=== PATIENT | male | born 1940 | race Caucasian/White ===

== ENCOUNTER 2017-10-24 13:44 | Inpatient (IN) | payer MEDICARE, OTHER ==
[~2017-10-24] VITALS: Ht 175.3 cm; Wt 78.0 kg
[2017-10-24] MEDS ORDERED: CARDURA4 MG ORAL (13:51)
[2017-10-24] MEDS ORDERED: HYDROCHLOROTHIA25 MG ORAL (13:51)
[2017-10-24] MEDS ORDERED: LOSARTAN POTAS100 MG ORAL (13:51)
[2017-10-24] MEDS ORDERED: ZANTAC150 MG ORAL (13:51)
[2017-10-24] MEDS ORDERED: FUROSEMIDE20 M1 ORAL (13:51)
[2017-10-24] MEDS ORDERED: MULTIVITAMINS1 EAC2 ORAL (13:51)
[2017-10-24] MEDS ORDERED: COLACE100 MG ORAL (13:51)
[2017-10-24] MEDS ORDERED: METOPROLOL TART25 MG ORAL (13:51)
[2017-10-24] MEDS ORDERED: ASPIRIN81 MG ORAL (13:51)
[2017-10-24] MEDS ORDERED: NORVASC10 MG ORAL (13:51)
[2017-10-24] MEDS ORDERED: PRAVACHOL40 MG ORAL (13:51)
[2017-10-24] MEDS ORDERED: UNOBMED (13:54)
[2017-10-24] MEDS ORDERED: CELEXA10 MG ORAL (13:54)
[2017-10-24] MEDS ORDERED: POTASSIUM CHLO20 ME1 ORAL (13:54)
[2017-10-24] MEDS ORDERED: VIAGRA100 MG PO (13:54)
[2017-10-24] MEDS ORDERED: DETROL LA4 MG ORAL (13:54)
[2017-10-24] MEDS ORDERED: XARELTO15 MG ORAL (13:54)
[2017-10-24] MEDS ORDERED: ATIVAN0.5 MG ORAL (13:54)
[2017-10-24 14:00] VITALS: BP 116/66
[2017-10-24 14:34] LABS: BASOPHILS % (AUTO) 0.5 % (0.0-2.0); EOSINOPHILS % (AUTO) 0.4 % (0.0-3.0); HEMATOCRIT 37.1 % (42.0-52.0); HEMOGLOBIN 12.7 G/DL (14.2-18.0); MEAN CORPUSCULAR VOLUME 94 FL (80-99); MONOCYTES % (AUTO) 7.4 % (1.0-10.0); NEUTROPHILS % (AUTO) 82.7 % (45.0-75.0); PLATELET COUNT 172 K/UL (150-450); RED BLOOD COUNT 3.94 M/UL (4.70-6.10); WHITE BLOOD COUNT 12.4 K/UL (4.8-10.8)
[2017-10-24 14:39] LABS: INR 1.1 (0.9-1.1)
[2017-10-24 14:41] LABS: ANION GAP 7 mmol/L (5-15); BLOOD UREA NITROGEN 28 mg/dL (7-18); CALCIUM 9.6 MG/DL (8.5-10.1); CARBON DIOXIDE 29 MMOL/L (21-32); CHLORIDE 102 MMOL/L (98-107); CREATININE 1.8 MG/DL (0.55-1.30); POTASSIUM 3.5 MMOL/L (3.5-5.1); SODIUM 138 MMOL/L (136-145)
[2017-10-24 14:51] LABS: ALANINE AMINOTRANSFERASE 17 U/L (12-78); ALBUMIN 3.1 G/DL (3.4-5.0); ALBUMIN/GLOBULIN RATIO 0.9 (1.0-2.7); ALKALINE PHOSPHATASE 33 U/L (46-116); ASPARTATE AMINO TRANSFERASE 16 U/L (15-37); BILIRUBIN,TOTAL 0.8 MG/DL (0.2-1.0); CREATINE KINASE 142 U/L (26-308)
--- NOTE | 2017-10-24 15:26 | Emergency Room Report ---
History of Present Illness General Chief Complaint: Lower Back Pain or Injury Source: Patient, Family Member, EMS Present Illness HPI Patient is brought in for falling episodes. His in ER and he, unable to discuss what happened. According to EMS he had back pain that's when they were called. When they arrived he denied falling and having back pain but complained about abdominal pain. To me he does complain about back pain. 0/10 to RN. The patient is on Xarelto with h/o A fib No chest pain, palpitations, NVD, dysuria. + bruising. Variable historian with h/o dementia. Allergies: Coded Allergies: No Known Allergies (Unverified , 11/09/14) Patient History Limited by: medical condition Past Medical History: see triage record Social History Narrative - assisted living Reviewed Nursing Documentation: PMH: Agreed, PSxH: Agreed Nursing Documentation-PMH Hx Cardiac Problems: Yes - CAD Hx Hypertension: Yes Hx Cerebrovascular Accident: Yes Review of Systems All Other Systems: limited Physical Exam Vital Signs Date Time Temp Pulse Resp B/P (MAP) Pulse Ox O2 Delivery O2 Flow Rate FiO2 10/24/17 13:36 97.9 72 18 144/82 95 Room Air Sp02 EP Interpretation: reviewed, normal General Appearance: well appearing, no apparent distress, non-toxic, other - GCS = 14 - sl confused Head: normocephalic Eyes: bilateral eye normal inspection, bilateral eye PERRL ENT: dry mucus membranes Neck: supple, no bony tend Respiratory: lungs clear, normal breath sounds Cardiovascular #1: irregularly irregular Cardiovascular #2: 2+ radial (R) Gastrointestinal: normal inspection, normal bowel sounds, non tender, no mass, non-distended Musculoskeletal: normal range of motion, no calf tenderness, pelvis stable, tender - lumbar area, no point tenderness or step off Neurologic: alert, motor strength/tone normal, DTRs symmetric, sensory intact, speech normal, oriented - X2 Psychiatric: anxious Skin: warm/dry, other - multiple ecchymoses arms and LE Medical Decision Making Diagnostic Impression: Primary Impression: Falling episodes Additional Impressions: Weakness Anticoagulated Dementia Qualified Codes: F03.90 - Unspecified dementia without behavioral disturbance Renal insufficiency Dehydration ER Course Patient with possible fall with back pain. On Xarelto. Ddx: brain bleed, contusions, fracture. Evaluation with CT head and back, EKG, CXR labs. Difficulty with variable history. Patient denies pain at this time. Comprehensive evaluation due to complexity and co-morbidity. EKG with BBB and a fib. CXR no infiltrates. CT head with frontal hygromas. CT back with spondylolisthesis. Labs with renal insufficiency. Patient unable to ambulate - unsteady gait and generalized weakness. Observed by Dr. Lovell who wants the patient admitted. C/O some back pain and anxiety. Slight repetitive questioning. Ativan and norco ordered. Admit med, Dr. Lovell. Laboratory Tests Test 10/24/17 14:00 White Blood Count 12.4 K/UL (4.8-10.8) H Red Blood Count 3.94 M/UL (4.70-6.10) L Hemoglobin 12.7 G/DL (14.2-18.0) L Hematocrit 37.1 % (42.0-52.0) L Mean Corpuscular Volume 94 FL (80-99) Mean Corpuscular Hemoglobin 32.3 PG (27.0-31.0) H Mean Corpuscular Hemoglobin Concent 34.4 G/DL (32.0-36.0) Red Cell Distribution Width 12.0 % (11.6-14.8) Platelet Count 172 K/UL (150-450) Mean Platelet Volume 6.1 FL (6.5-10.1) L Neutrophils (%) (Auto) 82.7 % (45.0-75.0) H Lymphocytes (%) (Auto) 9.0 % (20.0-45.0) L Monocytes (%) (Auto) 7.4 % (1.0-10.0) Eosinophils (%) (Auto) 0.4 % (0.0-3.0) Basophils (%) (Auto) 0.5 % (0.0-2.0) Prothrombin Time 11.9 SEC (9.30-11.50) H Prothrombin Time INR 1.1 (0.9-1.1) PTT 27 SEC (23-33) Sodium Level 138 MMOL/L (136-145) Potassium Level 3.5 MMOL/L (3.5-5.1) Chloride Level 102 MMOL/L (98-107) Carbon Dioxide Level 29 MMOL/L (21-32) Anion Gap 7 mmol/L (5-15) Blood Urea Nitrogen 28 mg/dL (7-18) H Creatinine 1.8 MG/DL (0.55-1.30) H Estimate Glomerular Filtration Rate mL/min (>60) Glucose Level 106 MG/DL (74-106) Calcium Level 9.6 MG/DL (8.5-10.1) Total Bilirubin 0.8 MG/DL (0.2-1.0) Aspartate Amino Transferase (AST) 16 U/L (15-37) Alanine Aminotransferase (ALT) 17 U/L (12-78) Alkaline Phosphatase 33 U/L (46-116) L Total Creatine Kinase 142 U/L (26-308) Troponin I 0.027 ng/mL (0.000-0.056) Pro-B-Type Natriuretic Peptide 4133 pg/mL (0-125) H Total Protein 6.5 G/DL (6.4-8.2) Albumin 3.1 G/DL (3.4-5.0) L Globulin 3.4 g/dL Albumin/Globulin Ratio 0.9 (1.0-2.7) L Lipase 89 U/L (73-393) EKG Diagnostic Results Rate: other - a fib Rhythm: other - a fib ST Segments: no acute changes Rhythm Strip Diag. Results EP Interpretation: yes Rhythm: no PVC's, no ectopy, other - a fib Chest X-Ray Diagnostic Results Chest X-Ray Diagnostic Results : Chest X-Ray Ordered: Yes # of Views/Limited/Complete: 1 View Indication: Other EP Interpretation: Yes Interpretation: no consolidation, no effusion, no pneumothorax Impression: Other Electronically Signed by: Electronically signed by Suresh Granados MD CT/MRI/US Diagnostic Results CT/MRI/US Diagnostic Results #1: Imaging Test Ordered: head Impression atrophy, hygroma CT/MRI/US Diagnostic Results #2: Imaging Test Ordered: L spine Impression spondylolisthesis - DJD Last Vital Signs Date Time Temp Pulse Resp B/P (MAP) Pulse Ox O2 Delivery O2 Flow Rate FiO2 10/24/17 17:11 97.9 73 18 126/79 99 Room Air Status: improved Disposition: ADMITTED INPATIENT Condition: Serious Referrals: NOT CHOSEN COLEEN/,REFERRING (PCP) Suresh Granados M.D. Oct 24, 2017 15:26
[2017-10-24 16:00] VITALS: BP 126/79
[2017-10-24] MEDS ORDERED: Miralax 17gm pkt ORAL PRN (16:00)
[2017-10-24] MEDS ORDERED: Acetaminophen 500mg (ES) tab ORAL PRN (16:00)
[2017-10-24] MEDS ORDERED: Norco 5mg/325mg tab ORAL ONE (16:00)
[2017-10-24] MEDS ORDERED: LORazepam 0.5mg tab ORAL ONE (16:00)
[2017-10-24] MEDS: Docusate 100mg cap ORAL SCH (18:30)
[2017-10-24] MEDS ORDERED: LORAZEPAM0.5 MG ORAL (18:32)
[2017-10-24] MEDS ORDERED: TYLENOL EXTRA500 MG ORAL ×2 (18:40→18:44)
[2017-10-24 20:00] VITALS: BP 130/80
[2017-10-24] MEDS: traMADol 50mg tab ORAL SCH ×2 (22:07→22:11)
[2017-10-24] MEDS: Doxazosin 4mg tab ORAL SCH (22:29)
[2017-10-24] MEDS: Exelon 1.5mg cap ORAL SCH (22:30)
[2017-10-24] MEDS: Citalopram Hydrobromide 10mg Tab ORAL SCH (22:46)
[2017-10-24 23:55] LABS: APPEARANCE,URINE CLEAR; BILIRUBIN, URINE NEGATIVE (NEGATIVE); GLUCOSE, URINE (UA) NEGATIVE (NEGATIVE); KETONES,URINE NEGATIVE (NEGATIVE); LEUKOCYTE ESTERASE ,URINE NEGATIVE (NEGATIVE); NITRITE,URINE NEGATIVE (NEGATIVE); PH,URINE 6 (4.5-8.0); UROBILINOGEN,URINE NORMAL MG/DL (0.0-1.0)
[2017-10-25] VITALS: BP 150/80
[2017-10-25] LABS: COLOR,URINE YELLOW; PROTEIN,URINE NEGATIVE (NEGATIVE)
[2017-10-25] MEDS ORDERED: EXELON PO (03:41)
[2017-10-25] MEDS ORDERED: ZANTAC150 MG ORAL (03:41)
[2017-10-25 04:00] VITALS: BP 145/75
--- NOTE | 2017-10-25 04:15 | History and Physical Report ---
DATE OF ADMISSION: 10/24/2017 CHIEF COMPLAINT AND REASON FOR HOSPITALIZATION: The patient with back pain and difficulty walking. HISTORY OF PRESENT ILLNESS: The patient is a 76-year-old male with a history of Alzheimer's, hypertension, atrial fibrillation, chronic kidney disease, anxiety disorder, and urinary incontinence. He apparently had an accidental slip and fall in the shower today and complained of back pain. The staff at [facility] noticed that he was having trouble walking, was concerned about a stroke or a new problem and sent him to the emergency room. SURGERIES: Left leg vascular surgery for arterial insufficiency. ALLERGIES: None known. MEDICATIONS: Include amlodipine, aspirin, citalopram, DSS, doxazosin, furosemide, hydrochlorothiazide, lorazepam, metoprolol, multivitamins, Exelon, Detrol, and I believe he is on Xarelto as well. HABITS: He is a former smoker and quit. Alcohol in the past, none recently. SOCIAL HISTORY: He lives in the assisted living facility with his , who also has Alzheimer's. SYSTEM REVIEW: HEAD, EYES, EARS, NOSE, AND THROAT: Vision is good. He has a mild hearing impairment. ENDOCRINE: No known thyroid disease or diabetes. PULMONARY: No asthma or TB. CARDIAC: Atrial fibrillation and diastolic congestive heart failure. He did have some shortness of breath. History of hypertension. GASTROINTESTINAL: No ulcers or GI bleeding. GENITOURINARY: He has had some urinary incontinence and BPH, improved with medications recently. NEUROLOGIC: History of Alzheimer's and no history of focal stroke. HEMATOLOGIC/ONCOLOGIC: No history of malignancy. He has been on anticoagulants for several years for atrial fibrillation and arterial insufficiency of the leg. PHYSICAL EXAMINATION: GENERAL: The patient is alert, seen in the emergency room. VITAL SIGNS: Temperature 97.9, pulse 73, respirations 18, and blood pressure 126/79. HEAD, EYES, EARS, NOSE, AND THROAT: Sclerae are nonicteric. Ocular motions intact in all directions. Oral mucosa moist. NECK: No lymphadenopathy. LUNGS: Clear. HEART: Rhythm is atrial fibrillation. I hear no murmur. ABDOMEN: Soft. No organomegaly or masses. EXTREMITIES: No edema, cyanosis, or clubbing. There is no swelling of joints. BACK: He has some mild tenderness in the low back. NEUROLOGIC: He is alert and responsive. Speech is clear. Ocular motion is intact in all directions. Smile symmetric. Tongue is midline. Strength appears to be normal in all extremities. Gait is unsteady. He is moderate to max assist to stand. When he takes small steps, he tends to fall backwards. IMPRESSION: 1. Status post ground level fall in the shower with back pain. 2. Gait disorder. 3. Alzheimer's. 4. Atrial fibrillation. 5. Hypertension. 6. Chronic kidney disease, stage 3. 7. History of long-term use of anticoagulants. PLAN: He needs to have imaging done to evaluate for any occult stroke or severe back injury, get him in physical therapy and monitoring of his gait to prevent any further falls and self-injury. Due to his chronic medical problems, we will watch closely due to his Alzheimer's, use of diuretics and chronic kidney disease. Keon Lovell M.D. DR: FISH JOB#: [id number] CC:
[2017-10-25] MEDS: traMADol 50mg tab ORAL SCH ×3 (06:22→21:30)
[2017-10-25 08:46] VITALS: BP 90/52
[2017-10-25] MEDS: Multivitamin w/Minerals tab ORAL SCH (08:51)
[2017-10-25] MEDS: Docusate 100mg cap ORAL SCH ×2 (08:52→17:24)
[2017-10-25] MEDS: Losartan 50mg tab ORAL SCH (08:53)
[2017-10-25] MEDS: Exelon 1.5mg cap ORAL SCH ×2 (08:53→17:25)
[2017-10-25] MEDS: Metoprolol 25mg tab ORAL SCH (08:53)
[2017-10-25] MEDS: Doxazosin 4mg tab ORAL SCH ×3 (08:53→18:00)
[2017-10-25] MEDS ORDERED: Aspirin Baby 81mg ORAL ONE (09:00)
--- NOTE | 2017-10-25 10:26 | Diagnostic Imaging Report ---
Indications: Trauma, status post fall Technique: Spiral acquisitions obtained through the brain. Angled axial and coronal 5 x 5 mm slices were reconstructed. Total dose length product 1488 mGycm. CTDI vol(s) 70 mGy. Dose reduction achieved using automated exposure control Comparison: None. Findings: There is age-related enlargement of the ventricles and extra-axial CSF spaces, most pronounced in the bilateral frontal regions. There is some focal encephalomalacia of the posterior left frontal lobe there is periventricular deep white matter ischemic change. Old lacunar infarcts are seen in the basal ganglia bilaterally, more numerous on the left than on the right. No acute intracranial hemorrhage or edema. No mass effect nor midline shift. Otherwise normal delgado-white differentiation. Intact calvarium. Visualized orbits and sinuses are unremarkable Impression: Chronic and age-related changes. Multiple old infarcts, as described. Negative for acute intracranial bleed or mass effect This agrees with the preliminary interpretation provided overnight by [facility]. The CT scanner at [facility] is accredited by the [employer] and the scans are performed using protocols designed to limit radiation exposure to as low as reasonably achievable to attain images of sufficient resolution adequate for diagnostic evaluation.
--- NOTE | 2017-10-25 10:38 | Diagnostic Imaging Report ---
Indications: Trauma, pain, status post fall, back pain Technique: Spiral acquisitions obtained through the lumbar spine. Multiplanar reconstructions were generated. No IV contrast utilized. Total dose length product 827.95 mGycm. CTDIvol(s) 25.67 mGy. Dose reduction achieved using automated exposure control Comparison: none Findings: There is slight anterior offset of L4 on L5, presumably related to facet degeneration as there is no pars defect evident. There is minimal dextroscoliotic deformity. The remaining bony alignment is normal. The vertebral body heights are preserved. There is very mild degenerative disc narrowing at L5-S1, mild degenerative disc narrowing at L1-2. The remaining disc spaces are preserved. There are extensive degenerative proliferative changes. No acute fractures. There is minimal circumferential annular bulge at L3-4. This, in examination with facet arthrosis, results in minimal narrowing the spinal canal. There is circumferential annular bulge at L4-5. This, as well as the alignment abnormality and facet arthrosis results in [id number] narrowing of the spinal canal at this level. At L5-S1, there is mild circumferential annular bulge which does not significantly narrow the spinal canal. Facet arthrosis results in moderate narrowing of the left and mild narrowing of the right neural foramina There is a pelvic stimulator power pack on the right with wire emanating into the right S2 foramen. There is a small fusiform infrarenal abdominal aortic aneurysm which measures up to 3.2 cm transverse dimension. No evidence of leakage or rupture. Impression: No acute bony trauma Degenerative changes, as detailed above 3.2 cm infrarenal fusiform abdominal aortic aneurysm. No evidence of leakage or rupture Incidental finding of sacral stimulator Findings discussed by phone with Dr. Rose at the time of interpretation The CT scanner at [facility] is accredited by the [employer] and the scans are performed using protocols designed to limit radiation exposure to as low as reasonably achievable to attain images of sufficient resolution adequate for diagnostic evaluation.
--- NOTE | 2017-10-25 11:14 | Diagnostic Imaging Report ---
Indication: Shortness of breath Technique: One view of the chest Comparison: none Findings: There is some pleural fluid on the left. Lungs and pleural spaces are otherwise clear. The heart is enlarged. The aorta is tortuous and calcified Impression: Left pleural effusion Cardiomegaly
[2017-10-25] MEDS: LORazepam 0.5mg tab ORAL PRN (12:32)
[2017-10-25] MEDS: Tolterodine 2mg tab ORAL SCH (13:49)
[2017-10-25 16:00] VITALS: BP 141/71
--- NOTE | 2017-10-25 17:45 | General Progress Note ---
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 SNOMED: 504257281, 481918180 (3) Falling episodes ICD Codes: R29.6 - Repeated falls SNOMED: 214571941 (4) Weakness ICD Codes: R53.1 - Weakness SNOMED: 44624983 (5) Unsteady gait ICD Codes: R26.81 - Unsteadiness on feet SNOMED: 24551955, 467467329 (6) Dementia ICD Codes: F03.90 - Unspecified dementia without behavioral disturbance SNOMED: 51868366 Qualifiers: Qualified Codes: F03.90 - Unspecified dementia without behavioral disturbance (7) Dehydration ICD Codes: E86.0 - Dehydration SNOMED: 07291013, 548247905 Assessment/Plan PT mobilize watch bp hydrate Subjective Constitutional: Reports: weakness HEENT: Reports: no symptoms Cardiovascular: Reports: no symptoms Respiratory: Reports: no symptoms Gastrointestinal/Abdominal: Reports: no symptoms Genitourinary: Reports: incontinence Neurologic/Psychiatric: Reports: weakness Endocrine: Reports: no symptoms Hematologic/Lymphatic: Reports: no symptoms Allergies: Coded Allergies: No Known Allergies (Unverified , 11/09/14) Objective Last 24 Hour Vital Signs Date Time Temp Pulse Resp B/P (MAP) Pulse Ox O2 Delivery O2 Flow Rate FiO2 10/25/17 17:12 Room Air 10/25/17 16:00 97.7 78 20 141/71 97 10/25/17 14:49 97.7 10/25/17 08:54 67 90/52 10/25/17 08:53 67 90/52 10/25/17 08:53 90/52 10/25/17 08:46 97.7 67 18 90/52 98 Room Air 10/25/17 08:12 Room Air 10/25/17 04:00 97.7 67 20 145/75 98 10/25/17 00:00 97.3 84 20 150/80 97 10/24/17 20:00 Room Air 10/24/17 20:00 97.9 61 22 130/80 97 Intake and Output 10/24/17 10/25/17 19:00 07:00 Intake Total 0 ml 240 ml Output Total 300 ml Balance 0 ml -60 ml Intake Oral 0 ml 240 ml Output Urine Total 300 ml # Voids 1 Laboratory Tests 10/24/17 23:10: Urine Color Yellow, Urine Appearance Clear, Urine pH 6, Urine Specific [place] 1.010, Urine Protein Negative, Urine Glucose (UA) Negative, Urine Ketones Negative, Urine Occult Blood Negative, Urine Nitrite Negative, Urine Bilirubin Negative, Urine Urobilinogen Normal, Urine Leukocyte Esterase Negative, Urine Opiates Screen Negative, Urine Barbiturates Screen Negative, Phencyclidine (PCP ) Screen Negative, Urine Amphetamines Screen Negative, Urine Benzodiazepines Screen Negative, Urine Cocaine Screen Negative, Urine Marijuana (THC) Screen Negative Height (Feet): 5 Height (Inches): 9.00 Weight (Pounds): 172 General Appearance: no apparent distress, alert, confused EENT: normal ENT inspection Neck: normal alignment Cardiovascular: regularly irregular Respiratory/Chest: lungs clear Abdomen: no organomegaly Edema: no edema noted Arm (L), no edema noted Arm (R), no edema noted Leg (L), no edema noted Leg (R), no edema noted Pedal (L), no edema noted Pedal (R), no edema noted Generalized Neurologic: disoriented, other - unstable gait SURYA QUINTEROS Oct 25, 2017 17:45
[2017-10-25 20:00] VITALS: BP 143/77
[2017-10-25] MEDS: Citalopram Hydrobromide 10mg Tab ORAL SCH (21:29)
[2017-10-26] VITALS: BP 146/85
[2017-10-26 04:48] VITALS: BP 148/94
[2017-10-26] MEDS: LORazepam 0.5mg tab ORAL PRN ×2 (05:08→15:36)
[2017-10-26] MEDS: traMADol 50mg tab ORAL SCH ×3 (05:22→22:21)
[2017-10-26 08:00] VITALS: BP 130/83
[2017-10-26 08:49] LABS: HEMATOCRIT 35.1 % (42.0-52.0); MEAN CORPUSCULAR VOLUME 96 FL (80-99); PLATELET COUNT 164 K/UL (150-450); RED BLOOD COUNT 3.66 M/UL (4.70-6.10); RED CELL DISTRIBUTION WIDTH 12.2 % (11.6-14.8); WHITE BLOOD COUNT 10.4 K/UL (4.8-10.8)
[2017-10-26] MEDS: Multivitamin w/Minerals tab ORAL SCH (10:13)
[2017-10-26] MEDS: Metoprolol 25mg tab ORAL SCH (10:13)
[2017-10-26] MEDS: Exelon 1.5mg cap ORAL SCH ×2 (10:13→17:46)
[2017-10-26] MEDS: Losartan 50mg tab ORAL SCH (10:14)
[2017-10-26] MEDS: Docusate 100mg cap ORAL SCH ×2 (10:14→17:41)
[2017-10-26] MEDS: Doxazosin 4mg tab ORAL SCH ×2 (10:14→17:41)
[2017-10-26 12:00] VITALS: BP 136/86
--- NOTE | 2017-10-26 13:29 | Neurology Progress Note ---
Interim History Interim History ROS Limited/Unobtainable: Yes Complaints: dizzy/mikd GRANT Events: gait ataxia x last few days Objective Physical Exam Last Vital Signs Date Time Temp Pulse Resp B/P (MAP) Pulse Ox O2 Delivery O2 Flow Rate FiO2 10/26/17 10:14 148/94 10/26/17 10:13 80 10/26/17 06:41 97.3 10/26/17 04:48 19 98 10/25/17 17:12 Room Air Laboratory Tests Test 10/26/17 08:15 White Blood Count 10.4 K/UL (4.8-10.8) Red Blood Count 3.66 M/UL (4.70-6.10) L Hemoglobin 12.0 G/DL (14.2-18.0) L Hematocrit 35.1 % (42.0-52.0) L Mean Corpuscular Volume 96 FL (80-99) Mean Corpuscular Hemoglobin 32.9 PG (27.0-31.0) H Mean Corpuscular Hemoglobin Concent 34.4 G/DL (32.0-36.0) Red Cell Distribution Width 12.2 % (11.6-14.8) Platelet Count 164 K/UL (150-450) Mean Platelet Volume 6.6 FL (6.5-10.1) Neutrophils (%) (Auto) % (45.0-75.0) Lymphocytes (%) (Auto) % (20.0-45.0) Monocytes (%) (Auto) % (1.0-10.0) Eosinophils (%) (Auto) % (0.0-3.0) Basophils (%) (Auto) % (0.0-2.0) Differential Total Cells Counted 100 Neutrophils % (Manual) 80 % (45-75) H Lymphocytes % (Manual) 11 % (20-45) L Monocytes % (Manual) 7 % (1-10) Eosinophils % (Manual) 2 % (0-3) Basophils % (Manual) 0 % (0-2) Band Neutrophils 0 % (0-8) Platelet Estimate Adequate Platelet Morphology Normal Red Blood Cell Morphology Normal General: well developed, well nourished, no acute distress Head: normocophalic Neck: no rigidity EENT: benign Neurologic Exam Mental Status: awake, alert, other - forgetful,confused Speech: normal speech, no dysarthia Language: normal language, no aphasia Cranial Nerve II: fundus normal, visual mayberry, no papilledema Cranial Nerves III, IV, : PERRLA, EOMI, pupils Cranial Nerve V: normal facial sensations, temporales function normal, masseters function normal, pterygoids function normal Cranial Nerve VII: normal facial expressions Cranial Nerve VIII: no nystagmus Cranial Nerve IX: gag response Cranial Nerve XI: trapezii function normal Cranial Nerve XII: tongue midline, no tongue atrophy/fasciculations Motor System: no involuntary movement, no muscle wasting, other - sligh rigidity Sensory: normal pinprick Coordination: other - +romberg Deep Tendon Reflexes: 0 bicep (L), 0 bicep (R), 0 tricep (L), 0 tricep (R), 0 brachioradialis (L), 0 brachioradialis (R), 0 knee (L), 0 knee (R), 0 ankle (L) , 0 ankle (R) Reflexes: mute plantar (L), mute plantar (R) Stance: other - unstable Gait: other - ataxic Impression/Recommendations Problems: (1) extensive ischemic cerebrovascular disease,multiple lacuner strokes, (2) Dementia arising in the senium and presenium (3) Gait disturbance, post-stroke Status: unchanged Recommendations # [id number] TANGELA BLACKMON Oct 26, 2017 13:28
[2017-10-26] MEDS: Tolterodine 2mg tab ORAL SCH (13:45)
[2017-10-26 14:41] LABS: ANION GAP 8 mmol/L (5-15); BLOOD UREA NITROGEN 17 mg/dL (7-18); CALCIUM 8.3 MG/DL (8.5-10.1); CARBON DIOXIDE 26 MMOL/L (21-32); CHLORIDE 104 MMOL/L (98-107); CREATININE 1.2 MG/DL (0.55-1.30); POTASSIUM 3.2 MMOL/L (3.5-5.1); SODIUM 138 MMOL/L (136-145)
[2017-10-26 16:00] VITALS: BP 147/84
[2017-10-26 20:00] VITALS: BP 143/94
--- NOTE | 2017-10-26 21:05 | General Progress Note ---
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 SNOMED: 421898061, 363177609 (3) Falling episodes ICD Codes: R29.6 - Repeated falls SNOMED: 796728087 (4) Weakness ICD Codes: R53.1 - Weakness SNOMED: 27063377 (5) Unsteady gait ICD Codes: R26.81 - Unsteadiness on feet SNOMED: 70366843, 892518307 (6) Dementia ICD Codes: F03.90 - Unspecified dementia without behavioral disturbance SNOMED: 23217914 Qualifiers: Qualified Codes: F03.90 - Unspecified dementia without behavioral disturbance (7) Dehydration ICD Codes: E86.0 - Dehydration SNOMED: 08377088, 232566599 (8) Dementia arising in the senium and presenium ICD Codes: F03.90 - Unspecified dementia without behavioral disturbance SNOMED: 29400602 (9) extensive ischemic cerebrovascular disease,multiple lacuner strokes, Assessment/Plan PT mobilize watch bp hydrate Subjective Constitutional: Reports: weakness HEENT: Reports: no symptoms Cardiovascular: Reports: no symptoms Respiratory: Reports: no symptoms Gastrointestinal/Abdominal: Reports: no symptoms Genitourinary: Reports: incontinence Neurologic/Psychiatric: Reports: weakness Endocrine: Reports: no symptoms Hematologic/Lymphatic: Reports: no symptoms Allergies: Coded Allergies: No Known Allergies (Unverified , 11/09/14) Objective Last 24 Hour Vital Signs Date Time Temp Pulse Resp B/P (MAP) Pulse Ox O2 Delivery O2 Flow Rate FiO2 10/26/17 20:00 97.3 87 20 143/94 96 10/26/17 16:00 97.9 77 19 147/84 97 Room Air 10/26/17 14:44 97.3 10/26/17 12:00 97.5 64 20 136/86 98 Room Air 10/26/17 10:14 148/94 10/26/17 10:13 80 148/94 10/26/17 08:00 97.2 69 18 130/83 100 Room Air 10/26/17 04:48 97.3 80 19 148/94 98 10/26/17 00:00 97.9 60 19 146/85 97 Intake and Output 10/25/17 10/26/17 19:00 07:00 Intake Total 480 ml 840 ml Output Total 600 ml Balance 480 ml 240 ml Intake Oral 480 ml 240 ml IV Total 600 ml Output Urine Total 600 ml # Voids 8 2 Laboratory Tests 10/26/17 08:15: White Blood Count 10.4, Red Blood Count 3.66L, Hemoglobin 12.0L, Hematocrit 35.1L, Mean Corpuscular Volume 96, Mean Corpuscular Hemoglobin 32.9H, Mean Corpuscular Hemoglobin Concent 34.4, Red Cell Distribution Width 12.2, Platelet Count 164, Mean Platelet Volume 6.6, Neutrophils (%) (Auto) , Lymphocytes (%) ( Auto) , Monocytes (%) (Auto) , Eosinophils (%) (Auto) , Basophils (%) (Auto) , Differential Total Cells Counted 100, Neutrophils % (Manual) 80H, Lymphocytes % (Manual) 11L, Monocytes % (Manual) 7, Eosinophils % (Manual) 2, Basophils % ( Manual) 0, Band Neutrophils 0, Platelet Estimate Adequate, Platelet Morphology Normal, Red Blood Cell Morphology Normal, Sodium Level 138, Potassium Level 3.2L , Chloride Level 104, Carbon Dioxide Level 26, Anion Gap 8, Blood Urea Nitrogen 17, Creatinine 1.2, Estimat Glomerular Filtration Rate , Glucose Level 108H, Calcium Level 8.3L Height (Feet): 5 Height (Inches): 9.00 Weight (Pounds): 172 General Appearance: no apparent distress, alert EENT: normal ENT inspection Neck: normal alignment Cardiovascular: regularly irregular Respiratory/Chest: lungs clear Abdomen: non tender, soft, no organomegaly Extremities: other - no edema Neurologic: chief technician II-XII grossly normal, abnormal gait, disoriented SURYA QUINTEROS Oct 26, 2017 21:05
[2017-10-26] MEDS: Citalopram Hydrobromide 10mg Tab ORAL SCH (22:22)
--- NOTE | 2017-10-26 23:15 | Consultation ---
DATE OF CONSULTATION: 10/26/2017 NEUROLOGICAL CONSULTATION CONSULTING PHYSICIAN: Mitchell Armijo M.D. REQUESTING PHYSICIAN: Keon Lovell M.D. HISTORY OF PRESENT ILLNESS: The patient is a 76-year-old man seen in neurological consultation to evaluate a new onset of progressive changes in ambulation as well as mental status changes. According to the medical records as well as from my conversation with the caregiver, he was able to ambulate slowly, getting tired following few steps, which force him to stop, but in the last few days, he became very ataxic and unsteady. Few days ago, he had an episode of mechanical fall in the shower. When he recalled, he was stepping backwards, tripped, and fell backwards hitting his head. There was no loss of consciousness. There was low back pain. The patient was brought to the emergency room with vital signs stable. Blood pressure 144/82 and temperature 97.9. EKG revealed bundle branch block with atrial fibrillation. Chest x-ray, no infiltrates noted. CAT scan of the brain revealed chronic age-related changes, multiple old infarcts, enlarged ventricles predominantly in frontal region, focal encephalomalacia at the superior left frontal lobe, and old lacunar infarct of the basal ganglia bilaterally. CT scan of the lumbar spine revealed no fracture and no dislocation. There is a sacral stimulator noted. There was a multilevel degenerative joint disease. There was a 3.2 infrarenal fusiform abdominal aortic aneurysm without evidence of leakage or rupture. PAST MEDICAL HISTORY: The patient has a history of mild dementia although more pronounced in the last few days, history of hypertension, history of atrial fibrillation, chronic renal insufficiency. MEDICATIONS: Treatment prior to admission included amlodipine, Tylenol, aspirin, Celexa, Colace, Cardura, Lasix, hydrochlorothiazide, Ativan 0.5 b.i.d. p.r.n., losartan, metoprolol, pravastatin 40 mg at bedtime, ranitidine, Xarelto 15 mg daily, Viagra, Detrol, and Exelon 3 mg p.o. b.i.d. ALLERGIES: None reported. SOCIAL HISTORY: The patient [facility] a [facility]. FAMILY HISTORY: Noncontributory. REVIEW OF SYSTEMS: The patient indicates that he is feeling well. He indicated he had a recent fall without loss of consciousness, currently has mild headache and mild dizziness. Denies chest pain or palpitations. No respiratory problems. Denies abdominal pain or discomfort. He has evidence of urinary incontinence. PHYSICAL EXAMINATION: GENERAL: A well-developed and well-nourished man, not in acute distress. VITAL SIGNS: His vital signs now are stable. Blood pressure 148/94, temperature 97.3, and heart rate of 80. HEENT: Head normocephalic. There is no evidence of trauma. No otorrhea. No rhinorrhea. NECK: Rigid in all directions. MUSCULOSKELETAL EXAMINATION: Unremarkable. There is no deformities. He has arthritic changes at the knees and ankles. Peripheral pulses 1+ and symmetric. MENTAL STATUS: The patient is alert and oriented x2. He is quite forgetful, but pleasant, cooperative, and follows commands. No aphasia. No apraxia. CRANIAL NERVE II: Pupils both responding to light and accommodation. Extraocular movement intact. No nystagmus. CRANIAL NERVE V: Normal corneal responses. CRANIAL NERVE VII: No facial asymmetry. CRANIAL NERVE VIII: Decreased hearing. CRANIAL NERVES IX THROUGH XII: Tongue is in midline. Symmetric palate elevation. MOTOR EXAMINATION: Revealed slight diffuse rigidity. No involuntary movement. Strength 5/5 in both upper extremities and 5-/5 in both lower extremities. No tremors. GAIT: The patient is very unsteady. He has a positive Romberg test. He requires full assist for ambulation, which is shuffling, small steps, unsteady. IMPRESSION: 1. 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 Rule out recent strokes in the posterior circulation. 2. Atrial fibrillation. 3. Hypertension. 4. Chronic renal insufficiency. 5. Peripheral vascular disease status post left lower extremity stenting. 6. Sacral spine stimulator. RECOMMENDATIONS: 1. If okay with radiologist, obtain an MRI of the brain, no contrast. 2. Carotid duplex. 3. Continue with the current treatment including Xarelto and small dose of aspirin 81 mg daily. 4. Add Aricept 5 mg daily to be titrated as necessary. 5. Get PT/OT. The patient will need a walker for ambulation. Mitchell Armijo M.D. DR: MÓNICA JOB#: [id number] CC:
[2017-10-27] VITALS (8 sets, daily range): BP systolic 109–153; BP diastolic 63–97
--- NOTE | 2017-10-27 04:00 | Progress Note ---
DATE: 10/26/2017 CARDIOLOGY PROGRESS NOTE SUBJECTIVE: The patient is being mobilized. Continues to have a significant fall risk. Easily fatigued. No loss of consciousness noted. OBJECTIVE: VITAL SIGNS: Blood pressure 143/94, pulse 87, respirations 20, and afebrile. LUNGS: Bilateral breath sounds. HEART: Irregularly irregular rhythm. Normal S1, S2. ABDOMEN: Soft. EXTREMITIES: Trace edema. LABORATORY AND DIAGNOSTIC DATA: Chest x-ray reveals left pleural effusion. White count 10, hemoglobin 12. Potassium 3.2. EKG reveals atrial fibrillation with nonspecific ST changes. IMPRESSION: 1. Recurring falls, likely mechanical, rule out arrhythmia. 2. Hypertensive heart disease. 3. Chronic systolic and diastolic congestive heart failure. 4. Atrial fibrillation with rate control. 5. Coagulopathy due to rivaroxaban. 6. Alzheimer's dementia. 7. Paroxysmal atrial fibrillation. PLAN: 1. Continue current cardiovascular regimen, but decrease diuretics and monitor for orthostasis and current antihypertensives. 2. Avoid tight blood pressure control. 3. Maintain cardioembolic prophylaxis with fall and bleeding precautions when rivaroxaban is resumed. 4. Holter monitor to assess for advanced symptomatic conduction system disease. Suresh Pham M.D. DR: CAROLINA JOB#: [id number] CC: ROMELIA
--- NOTE | 2017-10-27 04:00 | Consultation ---
DATE OF CONSULTATION: 10/25/2017 CARDIOLOGY CONSULTATION CONSULTING PHYSICIAN: Suresh Pham M.D. REQUESTING PHYSICIAN: Keon Lovell M.D. REASON FOR CONSULTATION: Recurrent falls in the setting of atrial fibrillation. HISTORY OF PRESENT ILLNESS: This is a 76-year-old white male, presented to the hospital with back pain and difficulty walking. I have been consulted to address his abnormal cardiac rhythm in the setting of recurring falls. The patient has a history of Alzheimer's dementia. He apparently had an accidental slip and fall in the shower earlier this morning and noted back pain and difficulty walking. The patient is apparently on chronic anticoagulation for cardioembolic prophylaxis. Caregiver and patient deny any loss of consciousness. PAST MEDICAL HISTORY: Peripheral artery disease, status post left lower extremity revascularization, hypertension, paroxysmal atrial fibrillation, chronic kidney disease, urinary incontinence, and Alzheimer's dementia. SOCIAL HISTORY: Former smoker. Former alcohol in moderate quantities. MEDICATIONS: Reviewed and reconciled. ALLERGIES: None known. REVIEW OF SYSTEMS: There is no known history of myocardial infarction, rheumatic heart disease, or pericardial effusion. The patient has a history of atrial fibrillation and is on anticoagulation. There is no history of blood clotting. There is no history of asthma. He has not been on inhalers recently. PHYSICAL EXAMINATION: GENERAL: Awake, alert, in mild distress due to back pain. VITAL SIGNS: Blood pressure of 120/80, pulse 72, and respirations 16. HEENT: Conjunctivae are pink. Sclerae are anicteric. Oropharynx clear. Mucous membranes moist. NECK: Supple. Jugular venous pressure normal. LUNGS: With clear breath sounds. CARDIAC: Irregularly irregular. Normal S1, S2. No murmur. ABDOMEN: Soft, nontender. EXTREMITIES: No edema. BACK: There is low back tenderness. No bruising. LABORATORY AND DIAGNOSTIC DATA: EKG, atrial fibrillation, no acute changes, ventricular rate is controlled. Labs are reviewed, notable for potassium 3.5, BUN 28, and creatinine 1.8. Pro-natriuretic peptide 4100. White count 12 and hemoglobin 12.7. IMPRESSION: 1. Apparent mechanical fall. 2. Atrial fibrillation, rate controlled. 3. Mild hypovolemia and dehydration. 4. Acute on chronic kidney injury due to hypovolemia and hypoperfusion. 5. Leukocytosis. 6. Acute on chronic diastolic congestive heart failure. PLAN: 1. Decrease diuretic to single agent. 2. Monitor orthostatics. 3. Avoid tight blood pressure control. 4. Cardioembolic prophylaxis with rivaroxaban to be reassessed, based on fall risk at this time. 5. Consider Holter monitor to evaluate for silent arrhythmia. 6. Aspiration precautions. 7. We will follow with you during this hospital course. Suresh Pham M.D. DR: CAROLINA JOB#: [id number] CC: ROMELIA
[2017-10-27] MEDS: traMADol 50mg tab ORAL SCH ×3 (05:59→20:32)
[2017-10-27 09:02] LABS: BASOPHILS % (AUTO) 0.4 % (0.0-2.0); EOSINOPHILS % (AUTO) 2.2 % (0.0-3.0); HEMATOCRIT 39.2 % (42.0-52.0); HEMOGLOBIN 13.3 G/DL (14.2-18.0); LYMPHOCYTES % (AUTO) 11.2 % (20.0-45.0); MEAN CORPUSCULAR VOLUME 96 FL (80-99); MONOCYTES % (AUTO) 6.7 % (1.0-10.0); NEUTROPHILS % (AUTO) 79.6 % (45.0-75.0); PLATELET COUNT 177 K/UL (150-450); RED BLOOD COUNT 4.07 M/UL (4.70-6.10); RED CELL DISTRIBUTION WIDTH 12.3 % (11.6-14.8); WHITE BLOOD COUNT 9.6 K/UL (4.8-10.8)
[2017-10-27 09:16] LABS: ANION GAP 9 mmol/L (5-15); BLOOD UREA NITROGEN 14 mg/dL (7-18); CALCIUM 8.3 MG/DL (8.5-10.1); CARBON DIOXIDE 27 MMOL/L (21-32); CHLORIDE 105 MMOL/L (98-107); CREATININE 1.1 MG/DL (0.55-1.30); POTASSIUM 3.6 MMOL/L (3.5-5.1); SODIUM 141 MMOL/L (136-145)
[2017-10-27] MEDS: Multivitamin w/Minerals tab ORAL SCH (09:46)
[2017-10-27] MEDS: Exelon 1.5mg cap ORAL SCH ×2 (09:46→17:53)
[2017-10-27] MEDS: Docusate 100mg cap ORAL SCH ×2 (09:47→17:53)
[2017-10-27] MEDS: Doxazosin 4mg tab ORAL SCH ×2 (09:48→17:54)
[2017-10-27] MEDS: Metoprolol 25mg tab ORAL SCH (09:49)
[2017-10-27] MEDS: Losartan 50mg tab ORAL SCH (09:49)
[2017-10-27] MEDS: Tolterodine 2mg tab ORAL SCH (14:09)
--- NOTE | 2017-10-27 18:26 | General Progress Note ---
Assessment/Plan Problem List: (1) Renal insufficiency ICD Codes: N28.9 - Disorder of kidney and ureter, unspecified SNOMED: 087793998, 453371860 (2) Anticoagulated ICD Codes: Z79.01 - intermediate manager (current) use of anticoagulants SNOMED: 893923254, 088473501 (3) Falling episodes ICD Codes: R29.6 - Repeated falls SNOMED: 479084112 (4) Weakness ICD Codes: R53.1 - Weakness SNOMED: 49381917 (5) Unsteady gait ICD Codes: R26.81 - Unsteadiness on feet SNOMED: 69162134, 754679987 (6) Dementia ICD Codes: F03.90 - Unspecified dementia without behavioral disturbance SNOMED: 51563109 Qualifiers: Qualified Codes: F03.90 - Unspecified dementia without behavioral disturbance (7) Dehydration ICD Codes: E86.0 - Dehydration SNOMED: 70854869, 532686394 (8) Dementia arising in the senium and presenium ICD Codes: F03.90 - Unspecified dementia without behavioral disturbance SNOMED: 05837023 (9) extensive ischemic cerebrovascular disease,multiple lacuner strokes, Assessment/Plan PT mobilize watch bp hydrate Subjective Constitutional: Reports: weakness HEENT: Reports: no symptoms Cardiovascular: Reports: no symptoms Respiratory: Reports: no symptoms Gastrointestinal/Abdominal: Reports: no symptoms Genitourinary: Reports: no symptoms, incontinence Neurologic/Psychiatric: Reports: pre-existing deficit, weakness Endocrine: Reports: no symptoms Hematologic/Lymphatic: Reports: no symptoms Allergies: Coded Allergies: No Known Allergies (Unverified , 11/09/14) Objective Last 24 Hour Vital Signs Date Time Temp Pulse Resp B/P (MAP) Pulse Ox O2 Delivery O2 Flow Rate FiO2 10/27/17 16:35 97.4 71 18 153/92 98 Room Air 10/27/17 16:26 97.7 88 17 109/77 100 Room Air 10/27/17 12:00 96.1 73 18 152/73 10/27/17 09:49 90 150/98 10/27/17 09:49 150/98 10/27/17 08:30 97.0 75 18 122/78 97 10/27/17 04:26 96.8 57 17 126/81 95 10/27/17 00:00 97.9 64 20 143/97 96 10/26/17 20:00 97.3 87 20 143/94 96 Intake and Output 10/26/17 10/27/17 19:00 07:00 Intake Total 700 ml 480 ml Output Total 600 ml Balance 100 ml 480 ml Intake Oral 700 ml 480 ml Output Urine Total 600 ml # Voids 1 12 Laboratory Tests 10/27/17 07:45: White Blood Count 9.6, Red Blood Count 4.07L, Hemoglobin 13.3L, Hematocrit 39.2L , Mean Corpuscular Volume 96, Mean Corpuscular Hemoglobin 32.7H, Mean Corpuscular Hemoglobin Concent 34.0, Red Cell Distribution Width 12.3, Platelet Count 177, Mean Platelet Volume 6.5, Neutrophils (%) (Auto) 79.6H, Lymphocytes ( %) (Auto) 11.2L, Monocytes (%) (Auto) 6.7, Eosinophils (%) (Auto) 2.2, Basophils (%) (Auto) 0.4, Sodium Level 141, Potassium Level 3.6, Chloride Level 105, Carbon Dioxide Level 27, Anion Gap 9, Blood Urea Nitrogen 14, Creatinine 1.1, Estimat Glomerular Filtration Rate , Glucose Level 130H, Calcium Level 8.3L Height (Feet): 5 Height (Inches): 9.00 Weight (Pounds): 172 General Appearance: no apparent distress, alert, confused EENT: normal ENT inspection Neck: normal alignment Cardiovascular: normal rate, regularly irregular Respiratory/Chest: lungs clear, normal breath sounds Abdomen: non tender, soft Edema: no edema noted Arm (L), no edema noted Arm (R), no edema noted Leg (L), no edema noted Leg (R), no edema noted Pedal (L), no edema noted Pedal (R), no edema noted Generalized 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
[2017-10-27] MEDS: Citalopram Hydrobromide 10mg Tab ORAL SCH (20:32)
--- NOTE | 2017-10-28 02:17 | Progress Note ---
DATE: 10/27/2017 CARDIOLOGY PROGRESS NOTE SUBJECTIVE: The patient has no new complaints. Mobilization is ongoing. Hydration continued. Blood pressure titration is in progress. OBJECTIVE: VITAL SIGNS: Blood pressure 109/77 to 153/92, heart rate 71 to 88, respiratory rate 17 to 18, and afebrile. LUNGS: Bilateral breath sounds. HEART: Irregularly irregular rhythm. ABDOMEN: Soft. EXTREMITIES: There is no edema. LABORATORY DATA: White count 9.6 and hemoglobin 13.3. Potassium 3.6, BUN 14, and creatinine 1.1. IMPRESSION: 1. Recurring falls. 2. Hypertensive heart disease. 3. Diastolic congestive heart failure, acute on chronic. 4. Hypokalemia, corrected. 5. Atrial fibrillation, rate controlled. PLAN: 1. Diuresis with caution. 2. Titration of anti-failure and antihypertensives. 3. Rivaroxaban for cardioembolic prophylaxis, if fall/bleeding risk acceptable. 4. Fall precautions and mobilize with therapist. Suresh Pham M.D. DR: NIDHI JOB#: [id number] CC: ROMELIA
[2017-10-28 04:00] VITALS: BP 137/91
[2017-10-28] MEDS: traMADol 50mg tab ORAL SCH ×3 (05:38→21:12)
[2017-10-28 07:05] LABS: BASOPHILS % (AUTO) 0.7 % (0.0-2.0); EOSINOPHILS % (AUTO) 1.6 % (0.0-3.0); HEMATOCRIT 36.5 % (42.0-52.0); HEMOGLOBIN 13.2 G/DL (14.2-18.0); LYMPHOCYTES % (AUTO) 8.8 % (20.0-45.0); MEAN CORPUSCULAR VOLUME 95 FL (80-99); MONOCYTES % (AUTO) 7.7 % (1.0-10.0); NEUTROPHILS % (AUTO) 81.2 % (45.0-75.0); PLATELET COUNT 172 K/UL (150-450); RED BLOOD COUNT 3.82 M/UL (4.70-6.10); WHITE BLOOD COUNT 12.1 K/UL (4.8-10.8)
[2017-10-28 07:53] LABS: ALANINE AMINOTRANSFERASE 16 U/L (12-78); ALBUMIN/GLOBULIN RATIO 0.9 (1.0-2.7); ALKALINE PHOSPHATASE 37 U/L (46-116); ANION GAP 9 mmol/L (5-15); ASPARTATE AMINO TRANSFERASE 17 U/L (15-37); BILIRUBIN,TOTAL 0.8 MG/DL (0.2-1.0); BLOOD UREA NITROGEN 15 mg/dL (7-18); CALCIUM 8.4 MG/DL (8.5-10.1); CARBON DIOXIDE 24 MMOL/L (21-32); CHLORIDE 105 MMOL/L (98-107); POTASSIUM 3.6 MMOL/L (3.5-5.1); SODIUM 138 MMOL/L (136-145)
[2017-10-28 08:09] VITALS: BP 160/96
[2017-10-28] MEDS: Exelon 1.5mg cap ORAL SCH ×2 (08:16→17:27)
[2017-10-28] MEDS: Metoprolol 25mg tab ORAL SCH (08:16)
[2017-10-28] MEDS: Losartan 50mg tab ORAL SCH (08:17)
[2017-10-28] MEDS: Doxazosin 4mg tab ORAL SCH ×2 (08:17→17:27)
[2017-10-28] MEDS: Docusate 100mg cap ORAL SCH ×2 (08:17→17:27)
[2017-10-28] MEDS: Multivitamin w/Minerals tab ORAL SCH (08:17)
[2017-10-28 11:14] VITALS: BP 160/103
[2017-10-28 12:47] VITALS: BP 114/73
[2017-10-28] MEDS: Tolterodine 2mg tab ORAL SCH (13:59)
[2017-10-28 16:00] VITALS: BP 152/86
[2017-10-28] MEDS: LORazepam 0.5mg tab ORAL PRN (17:27)
--- NOTE | 2017-10-28 18:00 | General Progress Note ---
Assessment/Plan Problem List: (1) Renal insufficiency ICD Codes: N28.9 - Disorder of kidney and ureter, unspecified SNOMED: 213975932, 112348084 (2) Anticoagulated ICD Codes: Z79.01 - director of safety and security (current) use of anticoagulants SNOMED: 008413187, 991549119 (3) Falling episodes ICD Codes: R29.6 - Repeated falls SNOMED: 330796121 (4) Weakness ICD Codes: R53.1 - Weakness SNOMED: 50250512 (5) Unsteady gait ICD Codes: R26.81 - Unsteadiness on feet SNOMED: 30236669, 429727545 (6) Dementia ICD Codes: F03.90 - Unspecified dementia without behavioral disturbance SNOMED: 54635634 Qualifiers: Qualified Codes: F03.90 - Unspecified dementia without behavioral disturbance (7) Dehydration ICD Codes: E86.0 - Dehydration SNOMED: 91316464, 657104966 (8) Dementia arising in the senium and presenium ICD Codes: F03.90 - Unspecified dementia without behavioral disturbance SNOMED: 69280798 (9) extensive ischemic cerebrovascular disease,multiple lacuner strokes, Assessment/Plan PT mobilize watch bp hydrate dc plan ecf Subjective Constitutional: Reports: weakness HEENT: Reports: no symptoms Cardiovascular: Reports: no symptoms Respiratory: Reports: no symptoms Gastrointestinal/Abdominal: Reports: no symptoms Genitourinary: Reports: incontinence Neurologic/Psychiatric: Reports: weakness Endocrine: Reports: no symptoms Allergies: Coded Allergies: No Known Allergies (Unverified , 11/09/14) Objective Last 24 Hour Vital Signs Date Time Temp Pulse Resp B/P (MAP) Pulse Ox O2 Delivery O2 Flow Rate FiO2 10/28/17 16:00 97.5 79 18 152/86 96 10/28/17 12:47 77 114/73 10/28/17 11:14 97.7 80 18 160/103 96 Room Air 10/28/17 08:17 160/96 10/28/17 08:16 69 160/96 10/28/17 08:09 97.4 69 20 160/96 97 Room Air 10/28/17 04:00 97.4 83 20 137/91 96 Room Air 10/27/17 23:58 97.3 70 20 133/63 97 Room Air 10/27/17 20:00 97.6 66 19 137/85 96 Room Air Intake and Output 10/27/17 10/28/17 19:00 07:00 Intake Total 240 ml Balance 240 ml Intake Oral 240 ml # Voids 2 # Bowel Movements 1 2 Laboratory Tests 10/28/17 06:25: White Blood Count 12.1H, Red Blood Count 3.82L, Hemoglobin 13.2L, Hematocrit 36.5L, Mean Corpuscular Volume 95, Mean Corpuscular Hemoglobin 34.6H, Mean Corpuscular Hemoglobin Concent 36.2H, Red Cell Distribution Width 12.0, Platelet Count 172, Mean Platelet Volume 7.4, Neutrophils (%) (Auto) 81.2H, Lymphocytes (%) (Auto) 8.8L, Monocytes (%) (Auto) 7.7, Eosinophils (%) (Auto) 1.6, Basophils (%) (Auto) 0.7, Sodium Level 138, Potassium Level 3.6, Chloride Level 105, Carbon Dioxide Level 24, Anion Gap 9, Blood Urea Nitrogen 15, Creatinine 1.0, Estimat Glomerular Filtration Rate , Glucose Level 107H, Calcium Level 8.4L, Magnesium Level 1.8, Total Bilirubin 0.8, Aspartate Amino Transf (AST/SGOT) 17, Alanine Aminotransferase (ALT/SGPT) 16, Alkaline Phosphatase 37L, Pro-B-Type Natriuretic Peptide 7408H, Total Protein 6.4, Albumin 3.0L, Globulin 3.4, Albumin/Globulin Ratio 0.9L Height (Feet): 5 Height (Inches): 9.00 Weight (Pounds): 172 General Appearance: no apparent distress, alert, confused EENT: normal ENT inspection Neck: normal alignment Cardiovascular: regularly irregular Respiratory/Chest: lungs clear, normal breath sounds Abdomen: soft, no organomegaly Edema: no edema noted Arm (L), no edema noted Arm (R), no edema noted Leg (L), no edema noted Leg (R), no edema noted Pedal (L), no edema noted Pedal (R), no edema noted 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
[2017-10-28 20:00] VITALS: BP 134/77
[2017-10-28] MEDS: Citalopram Hydrobromide 10mg Tab ORAL SCH (21:12)
[2017-10-29] VITALS: BP 127/69
[2017-10-29 04:00] VITALS: BP 141/88
--- NOTE | 2017-10-29 05:30 | Progress Note ---
DATE: 10/28/2017 CARDIOLOGY PROGRESS NOTE SUBJECTIVE: The patient without complaints. He continues to improve with mobility. He has been confused however and is danger to get out of bed alone. OBJECTIVE: VITAL SIGNS: Blood pressure 114/72 to 160/103, heart rate 80, and respiratory rate 18. He is afebrile. NECK: Supple. LUNGS: Clear. CARDIAC: Regular. Normal S1 and S2 with a fourth heart sound. ABDOMEN: Soft. EXTREMITIES: No edema. LABORATORY DATA: Echocardiogram is reviewed notable for wall motion abnormalities with ejection fraction of about 45%. IMPRESSION: 1. Ischemic heart disease . 2. Chronic systolic and diastolic congestive heart failure with left ventricular dysfunction of mild severity. 3. Cerebrovascular disease with multi-infarct dementia. PLAN: 1. Mobilization. 2. Maintain adequate hydration. 3. Continue beta-micaela. 4. Statin drug. 5. Add anti-platelet therapy. Suresh Pham M.D. DR: VALERIY JOB#: [id number] CC:
[2017-10-29] MEDS: traMADol 50mg tab ORAL SCH ×2 (05:41→14:31)
--- NOTE | 2017-10-29 06:32 | Cardiology Report ---
APPROVED REPORT EXAM: Two-dimensional and M-mode echocardiogram with Doppler and color Doppler. INDICATION Congestive Heart Failure M-Mode DIMENSIONS IVSd1.4 (0.7-1.1cm)Left Atrium (MM)5.7 (1.6-4.0cm) LVDd5.1 (3.5-5.6cm)Aortic Root3.0 (2.0-3.7cm) PWd1.2 (0.7-1.1cm)Aortic Cusp Exc.1.5 (1.5-2.0cm) LVDs3.9 (2.5-4.0cm) PWs1.5 cm Technically difficult study due to poor acoustical windows. Normal left ventricular chamber size. Moderate septal hypokinesis. Mild apical lateral hypokinesis. Left ventricular ejection fraction estimated to be 45%. Moderate left ventricular hypertrophy. No evidence of pericardial or pleural effusion. Right cardiac chamber sizes are within normal limits. Moderate left atrial enlargement by 2D. Focal aortic valve sclerosis with adequate cusp excursion. Thickened mitral valve leaflets with normal excursion. Mild mitral annulus and aortic root calcification. Pulmonic valve not well visualized. Normal tricuspid valve structure. IVC is normal in size and collapsible with respiration. A color flow and spectral Doppler study was performed and revealed: No aortic regurgitation. Moderate mitral regurgitation. Mitral inflow velocities indicates possible pseudo normalization pattern implying significant left ventricular diastolic dysfunction. Moderate tricuspid regurgitation. Tricuspid systolic velocities suggests peak right ventricular systolic pressure of 46 mmHg Consistent with moderate pulmonary hypertension. Pulmonic regurgitation present.
[2017-10-29 07:52] VITALS: BP 128/75
[2017-10-29] MEDS ORDERED: Aspirin EC 81mg tab ORAL SCH (09:00)
[2017-10-29] MEDS: Docusate 100mg cap ORAL SCH (09:02)
[2017-10-29] MEDS: Metoprolol 25mg tab ORAL SCH (09:02)
[2017-10-29] MEDS: Losartan 50mg tab ORAL SCH (09:02)
[2017-10-29] MEDS: Doxazosin 4mg tab ORAL SCH (09:02)
[2017-10-29] MEDS: Multivitamin w/Minerals tab ORAL SCH (09:03)
[2017-10-29] MEDS: Exelon 1.5mg cap ORAL SCH (09:03)
[2017-10-29 12:16] VITALS: BP 115/76
[2017-10-29] MEDS: LORazepam 0.5mg tab ORAL PRN (12:53)
[2017-10-29] MEDS: Tolterodine 2mg tab ORAL SCH (14:30)
--- NOTE | 2017-10-30 02:15 | Discharge Summary ---
DATE OF ADMISSION: 10/24/2017 DATE OF DISCHARGE: 10/29/2017 PERTINENT HISTORY: The patient presents with difficulty walking and unstable gait. He says that he fell in the shower. The patient has Alzheimer's, atrial fibrillation, peripheral vascular disease, chronic kidney disease, urinary incontinence, and hypertension. PERTINENT PHYSICAL FINDINGS: GENERAL: The patient is alert, weak, and confused. HEENT: Unremarkable. LUNGS: Clear. HEART: Rhythm is atrial fibrillation. ABDOMEN: Soft. EXTREMITIES: No edema. NEUROLOGIC: He is alert and responsive, but disoriented. He moves all extremities. Good strength, but has very unsteady gait. Back shows minimal tenderness. COURSE IN THE HOSPITAL: The patient was found to have mild dehydration with a creatinine of 1.8. It came to 1.0 with hydration. He also had some low normal blood pressure and his antihypertensive medications were reduced. He was seen by physical therapy daily and was unable to ambulate independently. He had a very unsteady gait. He was seen by Dr. Armijo in Neurology consultation and central nervous system imaging was done. A head CT was done showing age related enlargement of the ventricles and focal encephalomalacia of the posterior left frontal lobe and periventricular deep white matter ischemic changes. No lacunar infarcts in the basal ganglia bilaterally. The patient was unable to return to his prior assisted living facility due to unstable gait and arrangements were made for him to go to a [facility] facility and he was discharged to the facility in stable condition. FINAL DIAGNOSES: 1. Gait disorder, multiple falls. 2. Low back pain, mild. 3. Multiinfarct dementia. 4. Dehydration. 5. Mild hypotension. 6. Atrial fibrillation. 7. Ischemic heart disease. 8. History of a peripheral vascular disease. DISCHARGE DISPOSITION: To the [facility] on a no-added salt diet. DISCHARGE MEDICATIONS: Per the discharge medication list. Follow up by Dr. Lovell in the facility. Keon Lovell M.D. DR: ITZEL JOB#: [id number] CC:
--- NOTE | 2017-10-30 04:30 | Progress Note ---
DATE: 10/29/2017 CARDIOLOGY PROGRESS NOTE SUBJECTIVE: The patient has no new complaints. Denies chest pain or shortness of breath. No new weakness. OBJECTIVE: VITAL SIGNS: Blood pressure is 115/76, pulse 96, respiratory rate 22, and afebrile. Heart rate range 63 to 96. Oxygen saturation on room air is 99%. GENERAL: Gait is unsteady. NECK: Supple. LUNGS: Clear. CARDIAC: Regular. Normal S1 and S2 with a fourth heart sound. ABDOMEN: Soft. IMPRESSION: 1. Recurring falls. 2. Paroxysmal atrial fibrillation. 3. Ischemic heart disease. 4. History of myocardial infarction. 5. Cerebrovascular disease with prior cerebrovascular accident. PLAN: 1. Physical and occupational therapy. 2. Fall precautions. 3. Hold anticoagulation until fall risk decreases. 4. Continue anti-platelet therapy with aspirin. 5. Maintain current antihypertensive and antianginal regimen without change. 6. Stable for discharge to a senior living facility for rehabilitation. 7. Reassess for resumption of rivaroxaban prior to discharge from senior living facility back to home. Suresh Pham M.D. DR: Addi JOB#: [id number] CC:
== END 2017-10-29 15:30 | DRG 91 ==
LOC: EDBD 13:44 → EMR 14:10 → EDBEDREQ 16:50 → 4E 17:32
DX: R26.9 Unspecified abnormalities of gait and mobility (principal); I50.33 Acute on chronic diastolic (congestive) heart failure; I95.9 Hypotension, unspecified; I48.0 Paroxysmal atrial fibrillation; G30.9 Alzheimer's disease, unspecified; I13.0 Hypertensive heart and chronic kidney disease with heart failure and stage 1 through stage 4 chronic kidney disease, or unspecified chronic kidney disease; F01.50 Vascular dementia, unspecified severity, without behavioral disturbance, psychotic disturbance, mood disturbance, and anxiety; I48.91 Unspecified atrial fibrillation; E86.0 Dehydration; F02.80 Dementia in other diseases classified elsewhere, unspecified severity, without behavioral disturbance, psychotic disturbance, mood disturbance, and anxiety; N18.3 Chronic kidney disease, stage 3 (moderate); R29.6 Repeated falls; I49.9 Cardiac arrhythmia, unspecified; Z91.81 History of falling; Z79.01 Long term (current) use of anticoagulants; M54.5 Low back pain; I25.9 Chronic ischemic heart disease, unspecified; I73.9 Peripheral vascular disease, unspecified; Z87.891 Personal history of nicotine dependence; F41.9 Anxiety disorder, unspecified; R26.2 Difficulty in walking, not elsewhere classified; I71.4 Abdominal aortic aneurysm, without rupture; E87.6 Hypokalemia; Z66 Do not resuscitate; N40.1 Benign prostatic hyperplasia with lower urinary tract symptoms; N39.498 Other specified urinary incontinence
CPT/HCPCS: 36415; 70450; 71045; 72131; 80048; 80053; 80307; 81003; 82550; 83690; 83735; 83880; 84484; 85007; 85025; 85610; 85730; 87081; 93005; 93306; 99285; J8499

== ENCOUNTER 2019-02-01 16:12 | Emergency (ER) | payer MEDICARE, BC ==
[~2019-02-01] VITALS: Ht 175.3 cm; Wt 65.8 kg
[~2019-02-01 16:12] MED LIST: ASPIRIN81 MG ORAL; ATIVAN0.5 MG ORAL; CARDURA4 MG ORAL; CELEXA10 MG ORAL; COLACE100 MG ORAL; DETROL LA4 MG ORAL; EXELON PO; FUROSEMIDE20 M1 ORAL; HYDROCHLOROTHIA25 MG ORAL; LORAZEPAM0.5 MG ORAL; LOSARTAN POTAS100 MG ORAL; METOPROLOL TART25 MG ORAL; MULTIVITAMINS1 EAC2 ORAL; NORVASC10 MG ORAL; POTASSIUM CHLO20 ME1 ORAL; PRAVACHOL40 MG ORAL; TYLENOL EXTRA500 MG ORAL; UNOBMED; VIAGRA100 MG PO; XARELTO15 MG ORAL; ZANTAC150 MG ORAL
[2019-02-01] MEDS ORDERED: QUETIAPINE FUMA50 MG ORAL (16:21)
[2019-02-01] MEDS ORDERED: PRAVASTATIN SOD10 M1 ORAL (16:21)
[2019-02-01] MEDS ORDERED: FLOMAX0.4 MG ORAL (16:21)
[2019-02-01] MEDS ORDERED: SPIRONOLACTONE100 MG ORAL (16:21)
[2019-02-01] MEDS ORDERED: MIRALAX17 G2 ORAL (16:21)
[2019-02-01] MEDS ORDERED: LISINOPRIL5 MG ORAL (16:21)
[2019-02-01] MEDS ORDERED: TUMS200 M1 PO (16:21)
[2019-02-01] MEDS ORDERED: IPRATROPIU0.2 MG/1 M HHN (16:21)
[2019-02-01] MEDS ORDERED: TOLTERODINE TART2 MG PO (16:21)
[2019-02-01 16:23] VITALS: BP 174/85
--- NOTE | 2019-02-01 16:28 | NUR ---
ED Nurse Note:pt. was BIBA from assisted living s/p mechanical fall and posterior head laceration, pt. is A/Ox4 ambulatory with walker, seen by ER
--- NOTE | 2019-02-01 17:01 | Emergency Room Report ---
History of Present Illness General Chief Complaint: Multiple Trauma/Fall Source: Patient, Medical Record Present Illness HPI 78-year-old male presents ED for evaluation. Patient presents from his [facility] status post trip and fall with head injury. Laceration to back of head. Patient is currently taking Xarelto. Patient denies any pain. Denies any loss of consciousness. Denies any headaches blurry vision nausea or vomiting. Denies any other injuries. No other aggravating relieving factors. Denies any other associated symptoms Allergies: Coded Allergies: No Known Allergies (Unverified , 11/09/14) Patient History Past Medical History: HTN, COPD, CVA/TIA Past Surgical History: none Pertinent Family History: none Social History: Denies: smoking, alcohol use, drug use Immunizations: UTD Reviewed Nursing Documentation: PMH: Agreed; PSxH: Agreed Nursing Documentation-PMH Hx Cardiac Problems: Yes - HYPOKALEMIA, HYPERCHOLESTEREMIA Hx Hypertension: Yes Hx COPD: Yes Hx Neurological Problems: Yes Hx Cerebrovascular Accident: Yes Review of Systems All Other Systems: negative except mentioned in HPI Physical Exam Vital Signs Date Time Temp Pulse Resp B/P (MAP) Pulse Ox O2 Delivery O2 Flow Rate FiO2 02/01/19 16:09 98.2 60 16 97 Room Air 02/01/19 16:23 174/85 Sp02 EP Interpretation: reviewed, normal General Appearance: no apparent distress, alert, GCS 15, non-toxic Head: normocephalic, other - 2cm laceration to posterior scalp Eyes: bilateral eye normal inspection, bilateral eye PERRL ENT: hearing grossly normal, normal pharynx, no angioedema, normal voice Neck: full range of motion, supple/symm/no masses Respiratory: chest non-tender, lungs clear, normal breath sounds, speaking full sentences Cardiovascular #1: regular rate, rhythm, no edema Cardiovascular #2: 2+ carotid (R), 2+ carotid (L), 2+ radial (R), 2+ radial (L) , 2+ dorsalis pedis (R), 2+ dorsalis pedis (L) Gastrointestinal: normal bowel sounds, non tender, soft, non-distended, no guarding, no rebound Rectal: deferred Genitourinary: normal inspection, no CVA tenderness Musculoskeletal: back normal, gait/station normal, normal range of motion, non- tender Neurologic: alert, oriented x3, responsive, 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 I feel this is a highly complex case requiring extensive working including EKG/Rhythm strip, Xray/CT/US, Blood/urine lab work, repeat exams while in ED, and administration of strong opiates/narcotics for pain control, admission to hospital or close patient follow up. Total time: 75 min bedside evaluation and treatment excludes procedures (EKG). Reason for critical care: SDH, SAH Possible complications: hypotension, hypertension, UT, shock, arrhythmias, metabolic acidosis, end organ damage, respiratory failure. Interventions: labs, IVFS, EKG, CT. scalp laceration repair. MRI. keppra. discussion with neurosurgery at [facility] Hospital Course: Patient presenting with head injury status post fall today. On Xarelto. Scalp laceration. With max. CT shows questionable subdural recommending MRI. MRI shows subdural with a subarachnoid. no mass effect. No midline shift. Patient has no focal neurological deficits. Discussed with neurosurgery at [facility] in the exception for transfer. Patient given Keppra. Consultations: nursing staff, EMS, family Performed by: Dr Rushing Tolerated well condition = critical j. because of unstable vital signs this patient had a condition that could potentially threaten life or limb. I feel this is a critical patient who required my full attention while patient was considered critical. Total Critical Care Time excluding procedures was greater than 75 minutes Laceration/Wound Repair Laceration/Wound Repair : Consent: Verbal Wound Location: head Wound's Depth, Shape: linear Wound Explored: clean Betadine Prep?: Yes Anesthesia: 1% Lidocaine Wound Debrided: minimal Wound Repaired With: max Layer Closure?: No Sterile Dressing Applied?: Yes Splint Applied?: No Sling Applied?: No Patient Tolerated: Well Complications: None Medical Decision Making Diagnostic Impression: Primary Impression: Renal insufficiency Additional Impressions: Head injury Qualified Codes: S09.90XA - Unspecified injury of head, initial encounter Occipital scalp laceration Qualified Codes: S01.01XA - Laceration without foreign body of scalp, initial encounter Atrial fibrillation Qualified Codes: I48.2 - Chronic atrial fibrillation Subdural hemorrhage Subarachnoid bleed ER Course Hospital Course 78-year-old male presents with headache injury status post fall with scalp laceration. On Xarelto Differential diagnosis includes- CVA, brain bleed, skull fx Clinical course Patient placed on stretcher. Initial history and physical I ordered labs, IV fluids, EKG, CXR, CT brain Labs- BUN/Cr elevated, no leukocytosis, hb/hct stable EKG - afib no acute ischemic changes interpreted by me CXR unremarakble CT Brain cannot rule out subdural recommended MRI MRI shows subdural with subarachnoid. No mass effect or midline shift. Patient has no focal neurological deficits. Awake alert oriented 3 Given loading dose of Keppra. Patient is protecting airway and therefore should not be intubated. Patient will be transferred at [facility] for higher level of care. Case endorsed to neurosurgeon i. I feel this is a highly complex case requiring extensive working including EKG/Rhythm strip, Xray/CT/US, Blood/urine lab work, repeat exams while in ED, and administration of strong opiates/narcotics for pain control, admission to hospital or close patient follow up. Diagnosis - renal insufficiency, head injury, scalp laceration, atrial fibrillation, subdural, subarachnoid transferred in critical condition Labs Test 02/01/19 17:00 White Blood Count 11.5 K/UL (4.8-10.8) Red Blood Count 4.45 M/UL (4.70-6.10) Hemoglobin 13.6 G/DL (14.2-18.0) Hematocrit 38.9 % (42.0-52.0) Mean Corpuscular Volume 87 FL (80-99) Mean Corpuscular Hemoglobin 30.5 PG (27.0-31.0) Mean Corpuscular Hemoglobin Concent 34.9 G/DL (32.0-36.0) Red Cell Distribution Width 11.8 % (11.6-14.8) Platelet Count 198 K/UL (150-450) Mean Platelet Volume 5.3 FL (6.5-10.1) Neutrophils (%) (Auto) 80.6 % (45.0-75.0) Lymphocytes (%) (Auto) 10.8 % (20.0-45.0) Monocytes (%) (Auto) 6.4 % (1.0-10.0) Eosinophils (%) (Auto) 1.6 % (0.0-3.0) Basophils (%) (Auto) 0.7 % (0.0-2.0) Prothrombin Time 12.5 SEC (9.30-11.50) Prothromb Time International Ratio 1.2 (0.9-1.1) Activated Partial Thromboplast Time 35 SEC (23-33) Sodium Level 139 MMOL/L (136-145) Potassium Level 4.8 MMOL/L (3.5-5.1) Chloride Level 104 MMOL/L (98-107) Carbon Dioxide Level 27 MMOL/L (21-32) Anion Gap 8 mmol/L (5-15) Blood Urea Nitrogen 29 mg/dL (7-18) Creatinine 2.0 MG/DL (0.55-1.30) Estimat Glomerular Filtration Rate mL/min (>60) Glucose Level 111 MG/DL (74-106) Calcium Level 9.3 MG/DL (8.5-10.1) Total Bilirubin 0.5 MG/DL (0.2-1.0) Aspartate Amino Transf (AST/SGOT) 10 U/L (15-37) Alanine Aminotransferase (ALT/SGPT) 9 U/L (12-78) Alkaline Phosphatase 49 U/L (46-116) Total Protein 7.1 G/DL (6.4-8.2) Albumin 3.4 G/DL (3.4-5.0) Globulin 3.7 g/dL Albumin/Globulin Ratio 0.9 (1.0-2.7) EKG Diagnostic Results Rate: normal Rhythm: other - afib ST Segments: no acute changes ASA given to the pt in ED: No Rhythm Strip Diag. Results EP Interpretation: yes Rhythm: no PVC's, no ectopy Chest X-Ray Diagnostic Results Chest X-Ray Diagnostic Results : Chest X-Ray Ordered: Yes # of Views/Limited/Complete: 1 View Indication: Other EP Interpretation: Yes Interpretation: no consolidation, no effusion, no pneumothorax, no acute cardiopulmonary disease Impression: No acute disease Electronically Signed by: Electronically signed by Eleazar Rushing MD CT/MRI/US Diagnostic Results CT/MRI/US Diagnostic Results #1: Imaging Test Ordered: CT head Impression atrophy. ? chronic subdural CT/MRI/US Diagnostic Results #2: Imaging Test Ordered: MRI Brain Impression There is a very thin extra-axial fluid collection along the far anterior left frontal lobe (image 11-20) consistent with a thin subdural hematoma. Additionally there is non-suppressed fluid signal within the bilateral far anterior frontal sulci consistent with trace subarachnoid hemorrhage (image 11- 19) Marked global parenchymal atrophy with prominent CSF spaces along the periphery of the supratentorial and infratentorial intracranial spaces. Chronic microvascular ischemic changes. 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 No acute infarct. Last Vital Signs Date Time Temp Pulse Resp B/P (MAP) Pulse Ox O2 Delivery O2 Flow Rate FiO2 02/01/19 16:23 98.2 62 16 174/85 97 Room Air Status: improved Disposition: ADMITTED INPATIENT Condition: Serious Referrals: Keon Lovell MD (PCP) Eleazar Rushing MD February 01, 2019 17:01
--- NOTE | 2019-02-01 17:02 | NUR ---
ED Nurse Note:blood was sent to labs, meds given
[2019-02-01 17:19] LABS: BASOPHILS % (AUTO) 0.7 % (0.0-2.0); EOSINOPHILS % (AUTO) 1.6 % (0.0-3.0); HEMATOCRIT 38.9 % (42.0-52.0); HEMOGLOBIN 13.6 G/DL (14.2-18.0); LYMPHOCYTES % (AUTO) 10.8 % (20.0-45.0); MEAN CORPUSCULAR VOLUME 87 FL (80-99); MONOCYTES % (AUTO) 6.4 % (1.0-10.0); NEUTROPHILS % (AUTO) 80.6 % (45.0-75.0); PLATELET COUNT 198 K/UL (150-450); RED BLOOD COUNT 4.45 M/UL (4.70-6.10); RED CELL DISTRIBUTION WIDTH 11.8 % (11.6-14.8); WHITE BLOOD COUNT 11.5 K/UL (4.8-10.8)
[2019-02-01 17:21] LABS: ANION GAP 8 mmol/L (5-15); BLOOD UREA NITROGEN 29 mg/dL (7-18); CALCIUM 9.3 MG/DL (8.5-10.1); CARBON DIOXIDE 27 MMOL/L (21-32); CHLORIDE 104 MMOL/L (98-107); POTASSIUM 4.8 MMOL/L (3.5-5.1); SODIUM 139 MMOL/L (136-145)
[2019-02-01 17:26] LABS: INR 1.2 (0.9-1.1)
[2019-02-01 17:27] LABS: ALANINE AMINOTRANSFERASE 9 U/L (12-78); ALBUMIN 3.4 G/DL (3.4-5.0); ALBUMIN/GLOBULIN RATIO 0.9 (1.0-2.7); ALKALINE PHOSPHATASE 49 U/L (46-116); ASPARTATE AMINO TRANSFERASE 10 U/L (15-37); BILIRUBIN,TOTAL 0.5 MG/DL (0.2-1.0)
[2019-02-01] MEDS ORDERED: Morphine Sulfate 2mg/ml Inj(IV/IM USE ONLY) IVP ONE (17:30)
--- NOTE | 2019-02-01 18:00 | NUR ---
ED Nurse Note:pt. went to MRI
[2019-02-01 18:09] VITALS: BP 146/83
--- NOTE | 2019-02-01 19:05 | NUR ---
ED Nurse Note:pt. came back from MRI -it was not finished due to pt. moving, he was given Ativan 0.5mg and taken back to MRI
[2019-02-01] MEDS ORDERED: LORazepam Inj 2mg/ml 1ml ONE (19:14)
--- NOTE | 2019-02-01 19:21 | NUR ---
HAND-OFF: Report given to Selene.
[2019-02-01] MEDS ORDERED: LORazepam Inj 2mg/ml 1ml IV ONE (19:30)
--- NOTE | 2019-02-01 19:50 | NUR ---
ED Nurse Note: PT RETURNED FROM MRI, IN BED AWAKE, ALERT AND ORIENTED X 4, PT PLACED ON CARDIAC MONITORING, HAS PATENT IV LINE IN RIGHT AC, RUPALI TO MID BACK OF HEAD INTACT AND PATENT, PT IS TO BE ADMITTED TO HOSPITAL WHEN MD HAS MRI RESULTS, WILL CONTINUE TO MONITOR WHILE WAITING FOR DISPOSITION INSTRUCTIONS.
[2019-02-01 20:00] VITALS: BP 152/82
[2019-02-01] MEDS ORDERED: levETIRAcetam 1,000mg/NS100ml 100 ML IVPB ONE (20:15)
[2019-02-01 21:00] VITALS: BP 134/82
--- NOTE | 2019-02-01 21:15 | NUR ---
ED Nurse Note: PLACED CALL TO [facility] AT [phone], REPORT GIVEN TO HILDA NORRIS ON [address], PT IS IN BED AWAKE, ALERT AND ORIENTED X 4, NO NEURO DEFICITS, PERRLA, PAYROLL HUMAN RESOURCES ASSISTANT ALL EQUAL, NAD OR CHANGES NOTED, V/S STABLE, WILL CONTINUE TO CLOSELY MONITOR WHILE WAITING FOR AMBULANCE TRANSPORT.
[2019-02-01 21:40] VITALS: BP 134/82
--- NOTE | 2019-02-01 21:40 | NUR ---
ED Nurse Note: [facility] HAS ARRIVED FOR PT TRANSPORT, RIG#[id number], REPORT AND PT PACKET AND BELONGINGS GIVEN TO ASHKAN, PT IS AWAKE, ALERT AND ORIENTED X 4, IV SITE PATENT, NO NEURO DEFICITS OR ACUTE CHANGES NOTED, PT DENIES CP OR ANY PAIN, NO BLEEDING NOTED FROM RUPALI SITE, PT HAS ALL BELONGINGS INCLUDING PRESCRIPTION GLASSES AND WALKER, CD ALSO IN PACKET, V/S STABLE, NAD NOTED DURING PT TRANSPORT.
--- NOTE | 2019-02-02 10:43 | Diagnostic Imaging Report ---
Indication: Head trauma. Headache. Acute intracranial bleed Technique: The head was imaged in a 1.5 Mei magnet. Sequences obtained include sagittal and axial T1 FLAIR, axial T2 fast spin echo with fat saturation, axial T2 FLAIR, diffusion and ADC map. Comparison: None There is a curvilinear focus of high signal demonstrated along the left aspect of the anterior interhemispheric fissure and extending just deep to the left frontal inner table consistent with an acute subdural hematoma. There is no associated mass effect. Mild foci of T2 hyperintensity within the inferior aspects of both frontal lobes likely traumatic subarachnoid hemorrhage also noted. This is also best appreciated on T2 FLAIR. There is no diffusion restriction. There is moderate atrophy of the brain. There is encephalomalacia in the left parietal lobe likely from an old infarct. Periventricular T2 hyperintense signal consistent chronic small vessel disease demonstrated. Prominent bilateral cerebral convexity extra-axial collections likely old subdural hematomas versus CSF hygromas. There is motion artifact limiting evaluation. The corpus callosum and sella and osseous bone marrow signal appear normal. IMPRESSION: Small acute subdural hematoma just left of midline in the area of the anterior interhemispheric fissure. Traumatic subarachnoid hemorrhage inferior bifrontal regions. Moderate generalized atrophy of the brain. Bilateral cerebral extra-axial collections likely old subdural hematomas versus CSF hygromas. Evidence of chronic small vessel ischemia. Critical value communication. [facility] has communicated the preliminary results to the Emergency Department via telephone. Their findings are largely concordant with this report.
--- NOTE | 2019-02-02 11:11 | Diagnostic Imaging Report ---
Indication: Dyspnea Comparison: 10/24/2017 A single view chest radiograph was obtained. Findings: No definite infiltrate or pulmonary vascular congestion identified. The heart is enlarged. The aorta is mildly enlarged consistent with atherosclerotic vascular disease. The bones are unremarkable. Impression: No acute disease
--- NOTE | 2019-02-02 12:18 | Diagnostic Imaging Report ---
Indication: Headache and trauma Technique: Contiguous 5 mm thick transaxial imaging of the head obtained in a Siemens Sensation [address] scanner. Soft tissue and bone windows generated. Automatic Exposure Control was utilized. Total Dose length Product (DLP): 1376.[address] Dose Index Volume (CTDIvol): 70.38 mGy Comparison: 10/24/2017 Findings: There is a small acute subdural hematoma adjacent to the anterior aspect of the interhemispheric fissure between the fissure and the inner table of the skull just anterior to the left frontal lobe. In addition there is subtle increased attenuation of the inferior aspects of both frontal lobes likely hemorrhagic contusions or traumatic subarachnoid. There is no mass effect or edema identified. There is moderate atrophy of the brain especially in the frontal regions. There are bilateral low-density subdural fluid collections which may be old subdural hematomas or CSF hygromas. There is a focus of encephalomalacia in the left posterior frontal lobe likely from an old infarct. Small cystic foci in the basal ganglia noted bilaterally consistent with old lacunar infarcts. Low-attenuation of the periventricular white matter noted consistent chronic small vessel disease. IMPRESSION: Acute subdural hematoma involving the anterior interhemispheric fissure. No mass effect or associated edema. Suspected acute bifrontal hemorraghic contusions vs subarachnoid bleed. 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 Moderate atrophy of the brain Chronic small vessel ischemia as described above. The patient had a subsequent MRI about one hour after the CT, which better showed and confirmed the findings described in this report. A critical value communication on the MRI findings between the preliminary interpreting physician from [facility] and the emergency department was documented. The CT scanner at [facility] is accredited by the [employer] and the scans are performed using dose optimization techniques as appropriate to a performed exam including Automatic Exposure control.
== END 2019-02-01 21:45 | disposition other institution (70) ==
LOC: EDBD 16:12 → EMR 16:26 → UNDOADMIN 16:52 → 2E 16:52 → EDBEDREQ 17:05
DX: S09.90XA Unspecified injury of head, initial encounter (principal); S01.01XA Laceration without foreign body of scalp, initial encounter; I48.2 Chronic atrial fibrillation; I62.00 Nontraumatic subdural hemorrhage, unspecified; I60.9 Nontraumatic subarachnoid hemorrhage, unspecified; N28.9 Disorder of kidney and ureter, unspecified; Z79.01 Long term (current) use of anticoagulants; J44.9 Chronic obstructive pulmonary disease, unspecified; I10 Essential (primary) hypertension; Z86.73 Personal history of transient ischemic attack (TIA), and cerebral infarction without residual deficits; E78.00 Pure hypercholesterolemia, unspecified
CPT/HCPCS: 12011; 36415; 70450; 70551; 71045; 80053; 85025; 85610; 85730; 86850; 86900; 86901; 87081; 93005; 96365; 96375; 99291; J1953; J2270; J7040